=== PATIENT | female | born 1995 | race African-American/Black ===

== ENCOUNTER 2021-02-04 07:24 | Day surgery (SDC) | payer BC ==
[~2021-02-04] VITALS: Ht 162.6 cm; Wt 100.6 kg
[~2021-02-04 07:24] MED LIST: ALBU8.5H5; AZEL137S6; BUDE1AMP; FLUT1BLS15 INH; FLUT1DIS5; MONT10TA6; OMAL150V IM
[2021-02-04 08:13] VITALS: BP 130/84
[2021-02-04] MEDS ORDERED: ACETAMINOPHEN 500 MG TABLET ONE (08:17)
[2021-02-04] MEDS ORDERED: GABAPENTIN 300 MG CAPSULE ONE (08:18)
[2021-02-04] MEDS ORDERED: CHLORHEXIDINE 15 ML UDC ONE (08:18)
[2021-02-04] MEDS ORDERED: GABAPENTIN 300 MG CAPSULE PO ONE (08:30)
[2021-02-04] MEDS ORDERED: CEFAZOLIN 3,000 MG in SODIUM CHLORIDE 0.9% 100 ML IV ONE (08:30)
[2021-02-04] MEDS ORDERED: CHLORHEXIDINE 15 ML UDC PO ONE (08:30)
[2021-02-04] MEDS ORDERED: ACETAMINOPHEN 500 MG TABLET PO ONE (08:30)
[2021-02-04 08:37] LABS: MICROSCOPIC NOT IND
[2021-02-04 08:38] LABS: HCG UR SG 1.015 (1.003-1.030)
[2021-02-04 08:40] LABS: BASOPHILS % (AUTO) 1 % (0-1); EOSINOPHILS % (AUTO) 5 % (1-7); LYMPHOCYTES % (AUTO) 30 % (22-44); MEAN CORPUSCULAR HEMOGLOBIN 27.9 pg (27.0-34.8); MEAN CORPUSCULAR HGB CONC 33.7 g/dL (32.4-35.8); MEAN PLATELET VOLUME 6.6 fL (7.4-10.4); MONOCYTES % (AUTO) 6 % (2-9); NEUTROPHILS % (AUTO) 58 % (42-75); PLATELET COUNT 386 x10^3/uL (130-400); RED BLOOD COUNT 4.57 x10^6/uL (3.82-5.3); RED CELL DISTRIBUTION WIDTH 14.2 % (9.6-15.2)
[2021-02-04] MEDS ORDERED: FENTANYL PF 100 MCG/2ML ONE (08:50)
[2021-02-04] MEDS ORDERED: MIDAZOLAM 1 MG/ML, 2ML ONE (08:50)
[2021-02-04] MEDS ORDERED: EPINEPHRINE 1 MG/ML, 1ML ONE (09:06)
[2021-02-04] MEDS ORDERED: BUPIVACAINE/PF 0.5% ONE (09:06)
[2021-02-04] MEDS ORDERED: SUGAMMADEX 200 MG/2 ML IVPush ONE (09:17)
[2021-02-04] MEDS ORDERED: GLYCOPYRROLATE 0.2MG/1ML, 5ML ONE (09:44)
[2021-02-04] MEDS ORDERED: LIDOCAINE-MPF 2% ,5ML ONE (09:44)
[2021-02-04] MEDS ORDERED: DEXAMETHASONE 4 MG/ML, 1ML ONE (09:44)
[2021-02-04] MEDS ORDERED: ONDANSETRON 2MG/ML, 2ML ONE (09:44)
[2021-02-04] MEDS ORDERED: NEOSTIGMINE 1 MG/ML, 10ML ONE (09:44)
[2021-02-04] MEDS ORDERED: ROCURONIUM 10MG/ML,5ML ONE (09:44)
[2021-02-04] MEDS ORDERED: PROPOFOL 10 MG/ML, 20ML ONE (09:44)
[2021-02-04] MEDS ORDERED: HYDROmorphone 1 MG/ML, 1ML INJ ONE (09:50)
[2021-02-04] MEDS ORDERED: HYDROmorphone 1 MG/ML, 1ML INJ IVPush PRN (10:00)
[2021-02-04] MEDS ORDERED: METHOCARBAMOL 1,000 MG in DEXTROSE 5% 100 ML IV PRN (10:00)
[2021-02-04] MEDS ORDERED: PROMETHAZINE 25 MG/ML, 1ML IVPush PRN (10:00)
[2021-02-04] MEDS ORDERED: OXYcodone 5 MG/5 ML ORAL.SOL UDC PO PRN (10:00)
[2021-02-04] MEDS ORDERED: ALBUTEROL SULFATE 2.5 MG/3 ML NPPB PRN (10:00)
[2021-02-04] MEDS ORDERED: MEPERIDINE/PF 25MG/0.5ML IVPush PRN (10:00)
[2021-02-04] MEDS ORDERED: FENTANYL PF 100 MCG/2ML IV PRN (10:00)
[2021-02-04] MEDS ORDERED: LORazepam 2 MG/ML, 1ML IVPush PRN (10:00)
[2021-02-04] MEDS ORDERED: ACETAMINOPHEN 325 MG TABLET PO PRN (10:00)
[2021-02-04] MEDS ORDERED: LABETALOL 5MG/ML, 20ML IV PRN (10:00)
[2021-02-04] MEDS ORDERED: MEPERIDINE/PF 25MG/ML,1ML ONE (10:13)
[2021-02-04] MEDS ORDERED: ONDANSETRON ODT 4 MG ONE (11:46)
[2021-02-04] MEDS ORDERED: ONDANSETRON ODT 4 MG PO ONE (12:00)
== END 2021-02-04 12:35 | disposition home or self-care (01) ==
LOC: OUT 07:24
PROVIDERS: ATTEND Obstetrics & Gynecology
DX: N94.6 Dysmenorrhea, unspecified (principal); N83.8 Other noninflammatory disorders of ovary, fallopian tube and broad ligament; N92.0 Excessive and frequent menstruation with regular cycle; N73.6 Female pelvic peritoneal adhesions (postinfective); J45.909 Unspecified asthma, uncomplicated; G43.909 Migraine, unspecified, not intractable, without status migrainosus; E66.9 Obesity, unspecified; Z20.822 Contact with and (suspected) exposure to COVID-19; Z68.38 Body mass index [BMI] 38.0-38.9, adult; Z79.899 Other long term (current) drug therapy
CPT/HCPCS: 36415; 58662; 81003; 81025; 85025; 87635; J0690; J1100; J1170; J2175; J2250; J2405; J2704; J2710; J3010; Q0162; J0171